=== PATIENT | female | born 1975 | race Caucasian/White ===

== ENCOUNTER 2016-10-19 23:04 | Emergency (ER) | payer OTHER, BC ==
[~2016-10-19] VITALS: Ht 162.6 cm; Wt 81.6 kg
[2016-10-19 23:04] VITALS: BP 132/57
--- NOTE | 2016-10-20 00:48 | PHYS DOC ---
Past Medical History Past Medical History: No Pertinent History, Anxiety Past Surgical History: Cholecystectomy, Hysterectomy Alcohol Use: Rarely Drug Use: None Adult General Chief Complaint Chief Complaint: FINGER INJURY [facility] HPI Patient is a 41 year old female who presents with left hand injury. She states she was at work 28 hours ago and smashed it on a shelf. She complains of her PIP joint hurting her left hand. She is right-handed. She states over the last 24 hours it has swollen and become bruised around her joint. Review of Systems Review of Systems Constitutional: Denies fever or chills [] Eyes: Denies change in visual acuity, redness, or eye pain [] HENT: Denies nasal congestion or sore throat [] Respiratory: Denies cough or shortness of breath [] Cardiovascular: No additional information not addressed in HPI [] GI: Denies abdominal pain, nausea, vomiting, bloody stools or diarrhea [] : Denies dysuria or hematuria [] Musculoskeletal: Denies back pain, positive for joint pain [] Integument: Denies rash or skin lesions [] Neurologic: Denies headache, focal weakness or sensory changes [] Endocrine: Denies polyuria or polydipsia [] Allergies Allergies Allergies Coded Allergies Type Severity Reaction Last Updated Verified promethazine Allergy Intermediate confused 08/30/13 No Physical Exam Physical Exam Constitutional: Well developed, well nourished, no acute distress, non-toxic appearance. [] HENT: Normocephalic, atraumatic, bilateral external ears normal, oropharynx moist, no oral exudates, nose normal. [] Eyes: PERRLA, EOMI, conjunctiva normal, no discharge. [] Neck: Normal range of motion, no tenderness, supple, no stridor. [] Cardiovascular:Heart rate regular rhythm, no murmur [] Lungs & Thorax: Bilateral breath sounds clear to auscultation [] Abdomen: Bowel sounds normal, soft, no tenderness, no masses, no pulsatile masses. [] Skin: Warm, dry, no erythema, no rash. [] Back: No tenderness, no CVA tenderness. [] Extremities: Tender palpation of the left fourth digit PIP joint with erythema around it, able to flex and extend minimally, limited secondary to pain., no cyanosis, no clubbing, ROM intact, no edema. Radial ulnar median nerve dispositions intact to light touch of the left hand Neurologic: Alert and oriented X 3, normal motor function, normal sensory function, no focal deficits noted. [] Psychologic: Affect normal, judgement normal, mood normal. [] Current Patient Data Vital Signs Vital Signs Date Time Temp Pulse Resp B/P (MAP) Pulse Ox O2 Delivery O2 Flow Rate FiO2 10/19/16 23:04 98.5 80 16 99 Room Air 98.5 EKG EKG [] Radiology/Procedures Radiology/Procedures Reviews of the left hand did not show any rashes, malalignment's, foreign bodies , as interpreted by me. Impressions: Left finger injury Course & Med Decision Making Course & Med Decision Making Pertinent Labs and Imaging studies reviewed. (See chart for details) X-rays do not show any fracture. We dalila taped her finger together to the next one and she is being discharged home. She is to follow-up with primary care physician. Return precautions given. She is agreeable to the plan and being discharged in stable condition this time. Dragon Disclaimer Dragon Disclaimer This electronic medical record was generated, in whole or in part, using a voice recognition dictation system. Departure Departure Impression: Primary Impression: Finger injury Disposition: HOME, SELF-CARE Referrals: DAISY NICKERSON MD (PCP) Patient Instructions: Crush Injury, Fingers or Toes, [id number] Additional Instructions: The x-ray did not show anything broken. Your given a dalila tape the 2 fingers together and given several days to heal. You can take Motrin for pain control. After 2 days please and tape. Fingers and start doing range of motion with them inorder to keep limber. You should follow up with her primary care physician within a week if not better. Return ER if you have worsening swelling, fevers, or other signs of infection. Problem Qualifiers Primary Impression: Finger injury Encounter type: initial encounter Laterality: left Qualified Codes: S69.92XA - Unspecified injury of left wrist, hand and finger(s), initial encounter DANNY ROJO MD Oct 20, 2016 00:48
--- NOTE | 2016-10-20 08:08 | RAD ---
Examination: 3 views of the left fourth and fifth digit History: History of injury Comparison: None available Findings: The alignment of the metacarpophalangeal joint, interphalangeal joint grossly appears unremarkable. There is no acute fracture or dislocation identified Impression: No acute osseous findings.
== END 2016-10-20 01:09 | disposition home or self-care (01) ==
LOC: ER 23:23
DX: S69.92XA Unspecified injury of left wrist, hand and finger(s), initial encounter (principal); Z88.8 Allergy status to other drugs, medicaments and biological substances; W23.0XXA Caught, crushed, jammed, or pinched between moving objects, initial encounter; Y93.89 Activity, other specified; Y99.8 Other external cause status; Y92.89 Other specified places as the place of occurrence of the external cause
CPT/HCPCS: 73140; 99284

== ENCOUNTER 2016-12-04 15:45 | Emergency (ER) | payer BC, OTHER ==
[~2016-12-04] VITALS: Ht 167.6 cm; Wt 81.6 kg
[2016-12-04] MEDS ORDERED: IV NORMAL SALINE 1000ML BAG 1,000 ML IV SCH (16:31)
--- NOTE | 2016-12-04 16:40 | PHYS DOC ---
Past Medical History Past Medical History: No Pertinent History Past Surgical History: Cholecystectomy, Hysterectomy Alcohol Use: None Drug Use: None Adult General Chief Complaint Chief Complaint: ABDOMINAL PAIN [facility] HPI She is a pleasant 41-year-old female who is had a history of prior cholecystectomy, partial hysterectomy and partial oophorectomy who presents with right lower quadrant abdominal pain that began earlier in the week. Patient 's pain is gotten progressively worse over the course of the last few days. She was seen by her primary care doctor provide her something for diarrhea. She admits that the pain began in the right flank right lower quadrant did get worse or if he days and then markedly improved. While at work she began having increasing pain in the right lower quadrant described as sharp and stabbing without radiation to the back or the abdomen. She denies any prior history of the same. She admits she's had a couple episodes of loose stool which she took an antidiarrheal medications and one episode of nonbilious nonbloody emesis today. Patient denies any fevers or chills at this time denies any UTI symptoms , vaginal bleeding discharge or trauma. Patient also admits she's had no change in appetite but she has admitted that her pain is worsened with food as any travel outside the country or recent antibiotics. She also does not handle any kind of poultry, reptiles or consume any raw food. Patient was seen by her primary care doctor as to be evaluated in the emergency Department secondary to the right lower quadrant pain. My abdominal pain differential includes but not limited to, UTI, pyonephritis, cholecystitis, cholelithiasis, pancreatitis, appendicitis, small bowel obstruction, large bowel obstruction, diverticulosis, Diverticulum, intussusception, volvulus, irritable bowel disease, Crohn's or ulcerative colitis, considered upon arrival Review of Systems Review of Systems Constitutional: Denies fever or chills [] Eyes: Denies change in visual acuity, redness, or eye pain [] HENT: Denies nasal congestion or sore throat [] Respiratory: Denies cough or shortness of breath [] Cardiovascular: No additional information not addressed in HPI [] GI: She has mild abdominal pain with nausea and vomiting times one episode today nonbloody some mucoid stools or loose diarrheal stools several days ago now resolved. : Denies dysuria or hematuria [] Musculoskeletal: Denies back pain or joint pain [] Integument: Denies rash or skin lesions [] Neurologic: Denies headache, focal weakness or sensory changes [] Endocrine: Denies polyuria or polydipsia [] Current Medications Current Medications Current Medications Medications (Trade) Dose Ordered Sig/Rodrigue Start Time Stop Time Status Last Admin Dose Admin Hydromorphone HCl (Dilaudid) 1 mg PRN Q15MIN PRN 12/04/16 16:45 12/05/16 16:44 12/04/16 17:25 1 MG Info (Do NOT chart on this entry -- for MONITORING) 1 each PRN DAILY PRN 12/04/16 17:00 12/06/16 16:59 Iohexol (Omnipaque 300 Mg/ml) 75 ml 1X ONCE 12/04/16 16:45 12/04/16 16:47 DC 12/04/16 17:11 75 ML Ondansetron HCl (Zofran) 4 mg 1X ONCE 12/04/16 16:45 12/04/16 16:46 DC 12/04/16 16:47 4 MG Sodium Chloride (Normal Saline Flush) 10 ml QSHIFT PRN 12/04/16 16:45 Allergies Allergies Allergies Coded Allergies Type Severity Reaction Last Updated Verified promethazine Allergy Intermediate confused 08/30/13 No Physical Exam Physical Exam Vital signs recorded on the chart within normal limits. Constitutional: Well developed, well nourished, no acute distress, non-toxic appearance. [] HENT: Normocephalic, atraumatic, bilateral external ears normal, oropharynx moist, no oral exudates, nose normal. [] Eyes: PERRLA, EOMI, conjunctiva normal, no discharge. [] Neck: Normal range of motion, no tenderness, supple, no stridor. [] Cardiovascular:Heart rate regular rhythm, no murmur [] Lungs & Thorax: Bilateral breath sounds clear to auscultation [] Abdomen: She has normoactive bowel sounds soft tenderness to palpation in the right lower quadrant with no Calvert's or McBurney's point tenderness to palpation. Patient has no guarding rebound organomegaly negative Mckeon Combs sign negative Rovsing sign Skin: Warm, dry, no erythema, no rash. [] Back: No tenderness, no CVA tenderness. [] Extremities: No tenderness, no cyanosis, no clubbing, ROM intact, no edema. [] Neurologic: Alert and oriented X 3, Psychologic: Affect normal, judgement normal, mood normal. [] Current Patient Data Vital Signs Vital Signs Date Time Temp Pulse Resp B/P (MAP) Pulse Ox O2 Delivery O2 Flow Rate FiO2 12/04/16 17:25 18 97 Room Air 12/04/16 15:57 98.1 76 128/72 (90) 98.1 Lab Values Laboratory Tests Test 12/04/16 16:15 12/04/16 16:31 12/04/16 16:35 Urine Collection Type Unknown Urine Color Dk yellow Urine Clarity Clear Urine pH 6.0 Urine Specific [place] 1.025 Urine Protein Negative mg/dL (NEG-TRACE) Urine Glucose (UA) Negative mg/dL (NEG) Urine Ketones (Stick) Negative mg/dL (NEG) Urine Blood Negative (NEG) Urine Nitrite Negative (NEG) Urine Bilirubin Small (NEG) Urine Urobilinogen Dipstick 0.2 mg/dL (0.2 mg/dL) Urine Leukocyte Esterase Negative (NEG) Urine RBC 0 /HPF (0-2) Urine WBC Occ /HPF (0-4) Urine Squamous Epithelial Cells Mod /LPF Urine Bacteria Few /HPF (0-FEW) Urine Mucus Marked /LPF Sodium Level 139 mmol/L (136-145) Potassium Level 4.5 mmol/L (3.5-5.1) Chloride Level 102 mmol/L (98-107) Carbon Dioxide Level 31 mmol/L (21-32) Anion Gap 6 (6-14) Blood Urea Nitrogen 11 mg/dL (7-20) Creatinine 0.7 mg/dL (0.6-1.0) Estimated GFR (Cockcroft-Gault) 91.8 BUN/Creatinine Ratio 16 (6-20) Glucose Level 95 mg/dL (70-99) Calcium Level 9.1 mg/dL (8.5-10.1) Total Bilirubin 0.3 mg/dL (0.2-1.0) Aspartate Amino Transferase (AST) 21 U/L (15-37) Alanine Aminotransferase (ALT) 32 U/L (14-59) Alkaline Phosphatase 86 U/L (46-116) Total Protein 7.3 g/dL (6.4-8.2) Albumin 3.8 g/dL (3.4-5.0) Albumin/Globulin Ratio 1.1 (1.0-1.7) Lipase 129 U/L (73-393) White Blood Count 6.6 x10^3/uL (4.0-11.0) Red Blood Count 4.20 x10^6/uL (3.50-5.40) Hemoglobin 13.1 g/dL (12.0-15.5) Hematocrit 38.3 % (36.0-47.0) Mean Corpuscular Volume 91 fL (79-100) Mean Corpuscular Hemoglobin 31 pg (25-35) Mean Corpuscular Hemoglobin Concent 34 g/dL (31-37) Red Cell Distribution Width 12.5 % (11.5-14.5) Platelet Count 230 x10^3/uL (140-400) Neutrophils (%) (Auto) 74 % (31-73) H Lymphocytes (%) (Auto) 17 % (24-48) L Monocytes (%) (Auto) 6 % (0-9) Eosinophils (%) (Auto) 2 % (0-3) Basophils (%) (Auto) 1 % (0-3) Neutrophils # (Auto) 4.8 x10^3uL (1.8-7.7) Lymphocytes # (Auto) 1.1 x10^3/uL (1.0-4.8) Monocytes # (Auto) 0.4 x10^3/uL (0.0-1.1) Eosinophils # (Auto) 0.2 x10^3/uL (0.0-0.7) Basophils # (Auto) 0.0 x10^3/uL (0.0-0.2) Laboratory Tests 12/04/16 16:35 Laboratory Tests 12/04/16 16:31 EKG EKG [] Radiology/Procedures Radiology/Procedures [] Course & Med Decision Making Course & Med Decision Making Pertinent Labs and Imaging studies reviewed. (See chart for details) Patient presents with right lower quadrant abdominal pain concerning the differential diagnosis urinalysis was collected, CBC, lipase, CMP, CT abdomen and pelvis was obtained. Patient will have IV fluids antiemetics and pain meds provided and We'll reassess Laboratory Tests Test 12/04/16 16:15 12/04/16 16:31 12/04/16 16:35 Urine Collection Type Unknown Urine Color Dk yellow Urine Clarity Clear Urine pH 6.0 Urine Specific [place] 1.025 Urine Protein Negative mg/dL (NEG-TRACE) Urine Glucose (UA) Negative mg/dL (NEG) Urine Ketones (Stick) Negative mg/dL (NEG) Urine Blood Negative (NEG) Urine Nitrite Negative (NEG) Urine Bilirubin Small (NEG) Urine Urobilinogen Dipstick 0.2 mg/dL (0.2 mg/dL) Urine Leukocyte Esterase Negative (NEG) Urine RBC 0 /HPF (0-2) Urine WBC Occ /HPF (0-4) Urine Squamous Epithelial Cells Mod /LPF Urine Bacteria Few /HPF (0-FEW) Urine Mucus Marked /LPF Sodium Level 139 mmol/L (136-145) Chloride Level 102 mmol/L (98-107) Carbon Dioxide Level 31 mmol/L (21-32) Anion Gap 6 (6-14) Blood Urea Nitrogen 11 mg/dL (7-20) Estimated GFR (Cockcroft-Gault) 91.8 BUN/Creatinine Ratio 16 (6-20) Glucose Level 95 mg/dL (70-99) Calcium Level 9.1 mg/dL (8.5-10.1) Total Bilirubin 0.3 mg/dL (0.2-1.0) Aspartate Amino Transf (AST/SGOT) 21 U/L (15-37) Alkaline Phosphatase 86 U/L (46-116) Total Protein 7.3 g/dL (6.4-8.2) Albumin 3.8 g/dL (3.4-5.0) Albumin/Globulin Ratio 1.1 (1.0-1.7) Lipase 129 U/L (73-393) White Blood Count 6.6 x10^3/uL (4.0-11.0) Red Blood Count 4.20 x10^6/uL (3.50-5.40) Hemoglobin 13.1 g/dL (12.0-15.5) Hematocrit 38.3 % (36.0-47.0) Mean Corpuscular Volume 91 fL (79-100) Mean Corpuscular Hemoglobin 31 pg (25-35) Mean Corpuscular Hemoglobin Concent 34 g/dL (31-37) Red Cell Distribution Width 12.5 % (11.5-14.5) Platelet Count 230 x10^3/uL (140-400) Neutrophils (%) (Auto) 74 % (31-73) Lymphocytes (%) (Auto) 17 % (24-48) Monocytes (%) (Auto) 6 % (0-9) Eosinophils (%) (Auto) 2 % (0-3) Basophils (%) (Auto) 1 % (0-3) Neutrophils # (Auto) 4.8 x10^3uL (1.8-7.7) Lymphocytes # (Auto) 1.1 x10^3/uL (1.0-4.8) Monocytes # (Auto) 0.4 x10^3/uL (0.0-1.1) Eosinophils # (Auto) 0.2 x10^3/uL (0.0-0.7) Basophils # (Auto) 0.0 x10^3/uL (0.0-0.2) []Patient tells me that their symptoms given during CC are improved. We reviewed labs and radiology reports with patient and any family at bedside. Time is now 5:49 PM feels markedly improved Impression: Abdominal pain unclear etiology, Dragon Disclaimer Dragon Disclaimer This electronic medical record was generated, in whole or in part, using a voice recognition dictation system. Departure Departure Impression: Primary Impression: Abdominal pain Disposition: 01 HOME, SELF-CARE Condition: IMPROVED Referrals: DAISY NICKERSON MD (PCP) Patient Instructions: Abdominal Pain (Nonspecific) Additional Instructions: My discharge plan Follow up: In addition patient is asked to followup with their primary doctor, within a week for followup examination and to address patient's ongoing medical conditions. . Patient is advised that in the Emergency Department primary complaints are addressed and only in light of known signs and symptoms. Patient should return immediately to the emergency department if new signs and symptoms develop or patient's condition worsens in any way. At time of discharge patient was in stable condition and had verbalized understanding of the discharge instructions. Although there is no obvious evidence of appendicitis or intra-abdominal catastrophe at this time requiring surgical intervention or immediate medical management you could still develop these issues in the future. I would ask that you return immediately for any increasing symptoms question concerns. Scripts Hydrocodone Bit/Acetaminophen (HYDROCODONE-APAP 5-325 ) 1 Each Tablet 1-2 TAB PO PRN Q6HRS Y for PAIN for 5 Days, #10 TAB 0 Refills Prov: SISSY BARKER MD 12/04/16 Ondansetron (ZOFRAN ODT) 4 Mg Tab.rapdis 4 MG PO BID Y for NAUSEA/VOMITING for 5 Days, #10 TAB Prov: SISSY BARKER MD 12/04/16 SISSY BARKER MD Dec 04, 2016 16:40
[2016-12-04] MEDS ORDERED: ONDANSETRON PF 4 MG/2 ML VIAL. IV ONE (16:45)
[2016-12-04] MEDS ORDERED: 0.9 % SODIUM CHLORIDE 10 ML DISP.SYRIN. IV PRN (16:45)
[2016-12-04] MEDS ORDERED: IOHEXOL 300 MG/ML 75 ML VIAL IV ONE (16:45)
[2016-12-04] MEDS: HYDROmorphone 2 MG/ML VIAL IV/SQ PRN ×2 (16:48→17:25)
[2016-12-04 16:49] LABS: BASO % 1 % (0-3); EOS % 2 % (0-3); HEMATOCRIT 38.3 % (36.0-47.0); HEMOGLOBIN 13.1 g/dL (12.0-15.5); LYMPH # 1.1 x10^3/uL (1.0-4.8); LYMPH % 17 % (24-48); MEAN CORPUSCULAR HEMOGLOBIN 31 pg (25-35); MEAN CORPUSCULAR HGB CONC 34 g/dL (31-37); MEAN CORPUSCULAR VOLUME 91 fL (79-100); MONO % 6 % (0-9); NEUT % 74 % (31-73); PLATELET COUNT 230 x10^3/uL (140-400); RED CELL DISTRIBUTION WIDTH 12.5 % (11.5-14.5); WHITE BLOOD COUNT 6.6 x10^3/uL (4.0-11.0)
[2016-12-04] MEDS ORDERED: CONTRAST GIVEN MC PRN (17:00)
[2016-12-04 17:02] LABS: CALCIUM 9.1 mg/dL (8.5-10.1); CREATININE 0.7 mg/dL (0.6-1.0); GFR 91.8; POTASSIUM 4.5 mmol/L (3.5-5.1)
[2016-12-04 17:06] LABS: BILIRUBIN,URINE SMALL (NEG); GLUCOSE,URINE NEGATIVE (NEG); NITRITE,URINE NEGATIVE (NEG); PROTEIN,URINE NEGATIVE (NEG-TRACE); UROBILINOGEN,URINE 0.2 mg/dL (0.2 mg/dL)
[2016-12-04 17:08] LABS: ALBUMIN 3.8 g/dL (3.4-5.0); ALBUMIN/GLOBULIN RATIO 1.1 (1.0-1.7); TOTAL BILIRUBIN 0.3 mg/dL (0.2-1.0); TOTAL PROTEIN 7.3 g/dL (6.4-8.2)
[2016-12-04 17:23] LABS: BACTERIA,URINE FEW /HPF (0-FEW); RBC,URINE 0 /HPF (0-2); SQUAMOUS EPITHELIAL CELL,UR MOD /LPF; WBC,URINE OCC /HPF (0-4)
--- NOTE | 2016-12-04 17:31 | RAD ---
CT Abdomen and Pelvis With Intravenous Contrast: History: Right lower quadrant pain and abdominal pain for one week. Comparison: CT abdomen pelvis August 30, 2013. Technique: After administration of intravenous contrast administration, 75 mL Omnipaque-300, CT of the abdomen and pelvis was performed. Exposure: One or more of the following individualized dose reduction techniques were utilized for this examination: 1. Automated exposure control 2. Adjustment of the mA and/or kV according to patient size 3. Use of iterative reconstruction technique Findings: Evaluation of enteric structures may be limited by lack of oral contrast. Liver, spleen, pancreas, and bilateral adrenal glands are unremarkable. Gallbladder is absent. Bilateral kidneys enhance symmetrically. No bowel obstruction or inflammation is seen. Appendix is without evidence of inflammation. Urinary bladder is unremarkable. Uterus is absent. No free air or free fluid is seen in the abdomen or pelvis. Small fat-containing umbilical hernia is seen. Small fat-containing epigastric ventral hernia is seen just superior to the umbilicus. Impression: 1. No acute abnormality identified in the abdomen or pelvis. 2. Fat-containing ventral hernias. Electronically signed by: Alo Garza MD (12/04/2016 5:28 PM) [facility]
[2016-12-04] MEDS ORDERED: HYDR-2758 PO (17:51)
[2016-12-04] MEDS ORDERED: ONDA4TAB10 PO (17:51)
[2016-12-04 18:10] VITALS: BP 104/51
== END 2016-12-04 18:18 | disposition home or self-care (01) ==
LOC: ER 15:45
DX: R10.31 Right lower quadrant pain (principal); R19.7 Diarrhea, unspecified; R11.2 Nausea with vomiting, unspecified; Z90.49 Acquired absence of other specified parts of digestive tract; Z90.710 Acquired absence of both cervix and uterus; Z88.8 Allergy status to other drugs, medicaments and biological substances
CPT/HCPCS: 36415; 74177; 80053; 81001; 83690; 85025; 96361; 96374; 96375; 96376; 99285; J1170; J2405; J7030; Q9967

== ENCOUNTER 2017-04-01 23:18 | Inpatient (IN) | payer BC ==
[2017-04-01] MEDS: IV NORMAL SALINE 1000ML BAG 1,000 ML IV (23:33)
[2017-04-02 00:41] LABS: ADD MAN DIFF? NO
[2017-04-02 00:44] LABS: BASO # 0.1 x10^3/uL (0.0-0.2); BASO % 1 % (0-3); EOS # 0.2 x10^3/uL (0.0-0.7); EOS % 3 % (0-3); HEMATOCRIT 39.4 % (36.0-47.0); HEMOGLOBIN 13.2 g/dL (12.0-15.5); LYMPH # 1.7 x10^3/uL (1.0-4.8); LYMPH % 30 % (24-48); MEAN CORPUSCULAR HEMOGLOBIN 32 pg (25-35); MEAN CORPUSCULAR HGB CONC 34 g/dL (31-37); MEAN CORPUSCULAR VOLUME 94 fL (79-100); MONO # 0.5 x10^3/uL (0.0-1.1); MONO % 8 % (0-9); NEUT # 3.4 x10^3uL (1.8-7.7); NEUT % 58 % (31-73); PLATELET COUNT 261 x10^3/uL (140-400); RED BLOOD COUNT 4.19 x10^6/uL (3.50-5.40); RED CELL DISTRIBUTION WIDTH 12.9 % (11.5-14.5); WHITE BLOOD COUNT 5.8 x10^3/uL (4.0-11.0)
[2017-04-02 00:53] LABS: BILIRUBIN,URINE NEGATIVE (NEG); CLARITY,URINE CLEAR; COLOR,URINE STRAW; GLUCOSE,URINE NEGATIVE (NEG)
[2017-04-02 00:54] LABS: NITRITE,URINE NEGATIVE (NEG); PROTEIN,URINE NEGATIVE (NEG-TRACE); UROBILINOGEN,URINE 0.2 mg/dL (0.2 mg/dL)
[2017-04-02 00:55] LABS: AMORPHOUS SEDIMENT,UR PRESENT /HPF; BACTERIA,URINE 0 /HPF (0-FEW); PARTIAL THROMBOPLASTIN TIME 31 SEC (24-38); PROTHROMBIN TIME PATIENT 12.7 SEC (11.7-14.0); RBC,URINE OCC /HPF (0-2); SQUAMOUS EPITHELIAL CELL,UR FEW /LPF; WBC,URINE OCC /HPF (0-4)
[2017-04-02 00:56] LABS: AMPHETAMINE/METHAMPHETAMINE NEG (NEG); BARBITURATES NEG (NEG); BENZODIAZEPINES POS (NEG); CANNABINOIDS NEG (NEG); COCAINE NEG (NEG); ETHANOL, URINE NEG (NEG); METHADONE NEG (NEG); OPIATES NEG (NEG); PHENCYCLIDINE NEG (NEG)
[2017-04-02 01:01] LABS: ANION GAP 6 (6-14); BLOOD UREA NITROGEN 10 mg/dL (7-20); BUN/CREATININE RATIO 17 (6-20); CALCIUM 9.4 mg/dL (8.5-10.1); CARBON DIOXIDE 29 mmol/L (21-32); CHLORIDE 103 mmol/L (98-107); CREATININE 0.6 mg/dL (0.6-1.0); GFR 109.1; GLUCOSE 89 mg/dL (70-99); POTASSIUM 3.9 mmol/L (3.5-5.1); SODIUM 138 mmol/L (136-145)
[2017-04-02 01:07] LABS: ALBUMIN 3.5 g/dL (3.4-5.0); ALBUMIN/GLOBULIN RATIO 0.9 (1.0-1.7); ALK PHOS 81 U/L (46-116); ALT (SGPT) 23 U/L (14-59); AST (SGOT) 17 U/L (15-37); CREATINE KINASE 76 U/L (26-192); MAGNESIUM 2.3 mg/dL (1.8-2.4); TOTAL BILIRUBIN 0.2 mg/dL (0.2-1.0); TOTAL PROTEIN 7.3 g/dL (6.4-8.2)
[2017-04-02 01:14] LABS: ACETAMIN < 2.0 mcg/ml (10-30); ETHANOL < 10 mg/dL (0-10); SALIC < 2.8 mg/dL (2.8-20.0)
[2017-04-02] MEDS ORDERED: ONDANSETRON PF 4 MG/2 ML VIAL. IV (04:15)
[2017-04-02] MEDS ORDERED: INFLUENZA VAX SCREEN BY RX. MC (06:00)
[2017-04-02] MEDS: FLU VACC QS2017-18 (36MOS+)/PF 0.5 ML SYRINGE. VAX IM (08:00)
[2017-04-02] MEDS: ACETAMINOPHEN 325 MG TABLET. PO (10:17)
[2017-04-02] MEDS: IV NORMAL SALINE 1000ML BAG 1,000 ML IV (11:03)
[2017-04-02] MEDS: HYDROcodone/APAP 5/325MG 1 TAB TABLET PO ×2 (15:23→20:35)
[2017-04-03] MEDS: IV NORMAL SALINE 1000ML BAG 1,000 ML IV (00:05)
[2017-04-03 05:26] LABS: ADD MAN DIFF? NO
[2017-04-03 05:44] LABS: HEMATOCRIT 38.8 % (36.0-47.0); HEMOGLOBIN 12.9 g/dL (12.0-15.5); MEAN CORPUSCULAR VOLUME 95 fL (79-100); RED BLOOD COUNT 4.08 x10^6/uL (3.50-5.40); WHITE BLOOD COUNT 4.6 x10^3/uL (4.0-11.0)
[2017-04-03 05:45] LABS: BASO % 1 % (0-3); EOS # 0.3 x10^3/uL (0.0-0.7); EOS % 6 % (0-3); LYMPH # 1.8 x10^3/uL (1.0-4.8); LYMPH % 38 % (24-48); MEAN CORPUSCULAR HEMOGLOBIN 32 pg (25-35); MEAN CORPUSCULAR HGB CONC 33 g/dL (31-37); MONO # 0.4 x10^3/uL (0.0-1.1); MONO % 9 % (0-9); NEUT # 2.2 x10^3uL (1.8-7.7); NEUT % 47 % (31-73); PLATELET COUNT 228 x10^3/uL (140-400); RED CELL DISTRIBUTION WIDTH 13.1 % (11.5-14.5)
[2017-04-03 06:20] LABS: ANION GAP 6 (6-14); BLOOD UREA NITROGEN 9 mg/dL (7-20); CALCIUM 8.3 mg/dL (8.5-10.1); CARBON DIOXIDE 29 mmol/L (21-32); CHLORIDE 103 mmol/L (98-107); CREATININE 0.7 mg/dL (0.6-1.0); GFR 91.3; GLUCOSE 95 mg/dL (70-99); POTASSIUM 4.2 mmol/L (3.5-5.1); SODIUM 138 mmol/L (136-145)
== END 2017-04-03 15:30 | disposition home or self-care (01) | DRG 917 ==
LOC: 6 SOUTH 04-02 04:11 → ER 23:18
DX: T42.4X1A Poisoning by benzodiazepines, accidental (unintentional), initial encounter (principal); G93.40 Encephalopathy, unspecified; F13.20 Sedative, hypnotic or anxiolytic dependence, uncomplicated; F31.9 Bipolar disorder, unspecified; Y92.89 Other specified places as the place of occurrence of the external cause; Z81.8 Family history of other mental and behavioral disorders; Z90.710 Acquired absence of both cervix and uterus; Z88.8 Allergy status to other drugs, medicaments and biological substances
CPT/HCPCS: 36415; 51701; 70450; 80048; 80053; 80307; 80329; 81001; 82550; 83735; 85025; 85610; 85730; 90471; 90686; 93005; 96360; 96361; 99285; 99285-25; G0480; J7030

== ENCOUNTER 2017-04-07 00:29 | Emergency (ER) | payer BC ==
[2017-04-07] MEDS: HYDROcodone/APAP 5/325MG 1 TAB TABLET PO ×2 (01:54)
== END 2017-04-07 02:01 | disposition home or self-care (01) ==
LOC: ER 00:29
DX: S60.221A Contusion of right hand, initial encounter (principal); F31.9 Bipolar disorder, unspecified; F13.10 Sedative, hypnotic or anxiolytic abuse, uncomplicated; Z90.49 Acquired absence of other specified parts of digestive tract; Z90.710 Acquired absence of both cervix and uterus; Z88.8 Allergy status to other drugs, medicaments and biological substances; W22.8XXA Striking against or struck by other objects, initial encounter; Y93.89 Activity, other specified; Y92.89 Other specified places as the place of occurrence of the external cause; Y99.8 Other external cause status
CPT/HCPCS: 73130; 99284

== ENCOUNTER 2017-04-08 11:15 | Emergency (ER) | payer BC ==
[2017-04-08 12:05] LABS: BARBITURATES NEG (NEG); BENZODIAZEPINES NEG (NEG); BILIRUBIN,URINE NEGATIVE (NEG); CANNABINOIDS NEG (NEG); CLARITY,URINE CLEAR; COCAINE NEG (NEG); COLOR,URINE YELLOW; GLUCOSE,URINE NEGATIVE (NEG); METHADONE NEG (NEG); NITRITE,URINE NEGATIVE (NEG); OPIATES NEG (NEG); PHENCYCLIDINE NEG (NEG); PROTEIN,URINE NEGATIVE (NEG-TRACE); UROBILINOGEN,URINE 0.2 mg/dL (0.2 mg/dL)
[2017-04-08 12:06] LABS: AMPHETAMINE/METHAMPHETAMINE NEG (NEG); ETHANOL, URINE NEG (NEG)
[2017-04-08 12:13] LABS: ADD MAN DIFF? NO
[2017-04-08 12:19] LABS: BASO # 0.1 x10^3/uL (0.0-0.2); BASO % 1 % (0-3); EOS % 1 % (0-3); HEMATOCRIT 39.3 % (36.0-47.0); HEMOGLOBIN 13.4 g/dL (12.0-15.5); LYMPH # 1.1 x10^3/uL (1.0-4.8); LYMPH % 16 % (24-48); MEAN CORPUSCULAR HEMOGLOBIN 32 pg (25-35); MEAN CORPUSCULAR HGB CONC 34 g/dL (31-37); MEAN CORPUSCULAR VOLUME 93 fL (79-100); MONO # 0.5 x10^3/uL (0.0-1.1); MONO % 8 % (0-9); NEUT # 4.9 x10^3uL (1.8-7.7); NEUT % 74 % (31-73); PLATELET COUNT 277 x10^3/uL (140-400); RED BLOOD COUNT 4.23 x10^6/uL (3.50-5.40); RED CELL DISTRIBUTION WIDTH 12.7 % (11.5-14.5); WHITE BLOOD COUNT 6.6 x10^3/uL (4.0-11.0)
[2017-04-08 12:22] LABS: BACTERIA,URINE FEW /HPF (0-FEW); RBC,URINE 0 /HPF (0-2); SQUAMOUS EPITHELIAL CELL,UR MANY /LPF; WBC,URINE 0 /HPF (0-4)
[2017-04-08 12:31] LABS: ANION GAP 10 (6-14); BLOOD UREA NITROGEN 12 mg/dL (7-20); CARBON DIOXIDE 26 mmol/L (21-32); CHLORIDE 100 mmol/L (98-107); CREATININE 0.6 mg/dL (0.6-1.0); GFR 109.1; GLUCOSE 117 mg/dL (70-99); POTASSIUM 3.7 mmol/L (3.5-5.1); SODIUM 136 mmol/L (136-145)
[2017-04-08 12:46] LABS: THYROID STIM HORMONE (TSH) 2.131 uIU/mL (0.358-3.74)
[2017-04-08] MEDS: SODIUM PHOSPHATES 19/7GM 133 ML ENEMA. PR ×2 (13:27)
[2017-04-08 14:45] LABS: LIPASE 85 U/L (73-393)
[2017-04-08 16:36] LABS: FECAL OB PT POSITIVE (NEG); NEG OBC FOB NEG; POS OBC FOB POS
== END 2017-04-08 15:06 | disposition home or self-care (01) ==
LOC: ER 11:15
DX: K59.00 Constipation, unspecified (principal); R20.2 Paresthesia of skin; R19.8 Other specified symptoms and signs involving the digestive system and abdomen; Z88.8 Allergy status to other drugs, medicaments and biological substances
CPT/HCPCS: 36415; 74018; 80048; 80307; 81001; 82274; 83690; 84443; 85025; 99285-25

== ENCOUNTER → 2018-04-30 | Outpatient (CLI) | payer BC ==
[2017-04-08 15:05] VITALS: BP 111/58
[~2018-04-30] MED LIST: ACYC400T PO; ALPR0.5T6 PO; CITA40TA5 PO; DICL75TA PO; DOCU-109 PO; ESCITALOPRAM OX20 MG PO; GABA600T7 PO; HYDR-2761 PO; LAMO100T PO; METH-37 PO; METH750T2 PO; ONDA4TAB10 PO; [UNRECOGNIZED DRUG - REMARK]
--- NOTE | 2018-05-01 08:08 | KCIC ---
EXAM: Cervical spine MRI without contrast. HISTORY: Radiculopathy. TECHNIQUE: Multiplanar, multisequence magnetic resonance imaging of the cervical spine was performed without contrast. COMPARISON: None. FINDINGS: There is mild cervical kyphosis. There is no significant listhesis. The vertebral bodies are normal in height. There are few incidental osseous hemangiomas. There is no suspicious osseous lesion. There is no acute or subacute fracture. There is degenerative endplate remodeling with osteophytosis at the majority of the cervical vertebral levels. There are few endplate Schmorl's nodes, predominantly at C6-C7. There is deformation of the cervical spinal cord at multiple levels due to central canal stenosis, described in detail below. At C2-C3, there is a minimal left posterior lateral disc osteophyte complex. There is mild right greater than left facet arthropathy. There is mild left foraminal stenosis. At C3-C4, there is a minimal shallow left paracentral disc protrusion superimposed on a disc bulge and endplate remodeling. There is mild left greater than right facet arthropathy. There is moderate left foraminal stenosis. There is slight flattening of the left ventral aspect of the spinal cord and mild central canal stenosis measuring 8.5 mm in anterior posterior dimension. At C4-C5, there are bilateral posterior lateral disc osteophyte complexes superimposed on a diffuse disc bulge and endplate osteophytosis. There is mild bilateral facet arthropathy. There is bilateral uncovertebral arthropathy. There is moderate to severe right and severe left foraminal stenosis. There is flattening of the ventral aspect of the spinal cord and moderate central canal stenosis measuring 6.3 mm in anterior posterior dimension. There is suggestion of slight T2 hyperintensity within the spinal cord at this level which is not seen on both sagittal and axial images and is likely artifactual rather than due to myelomalacia. At C5-C6, there is a right paracentral to lateral recess disc protrusion with slight inferior extrusion and bilateral posterior lateral disc osteophyte complexes superimposed on a disc bulge and endplate osteophytosis. There is mild bilateral facet arthropathy. There is bilateral uncovertebral arthropathy. There is severe right and moderate to severe left foraminal stenosis. There is flattening of the right ventral aspect of the spinal cord and moderate central canal stenosis measuring 7.0 mm in anterior posterior dimension. There is a tiny dilated nerve root sheath cyst within the right extraforaminal space. At C6-C7, there is a right posterior lateral predominant disc bulge and endplate osteophytosis. There is mild facet arthropathy. There is right greater than left uncovertebral arthropathy. There is mild left foraminal stenosis. IMPRESSION: Multilevel degenerative change throughout the cervical spine, described in detail above. This results in suspected mild left foraminal stenosis at C2-C3, moderate left foraminal and mild central canal stenosis at C3-C4, moderate to severe right and severe left foraminal and moderate central canal stenosis at C4-C5, severe right and moderate to severe left foraminal and moderate central canal stenosis at C5-C6, and mild left foraminal stenosis at C6-C7. Electronically signed by: Joan Frias MD (05/01/2018 8:05 AM) [id number]
== END | disposition home or self-care (01) ==
LOC: KCIC MRI 16:10
PROVIDERS: ATTEND Psychiatry & Neurology Neurology with Special Qualifications in Child Neurology
DX: M50.11 Cervical disc disorder with radiculopathy, high cervical region (principal); M47.22 Other spondylosis with radiculopathy, cervical region; M48.02 Spinal stenosis, cervical region
CPT/HCPCS: 72141

== ENCOUNTER → 2018-06-02 | Outpatient (CLI) | payer BC ==
[2017-04-08 15:05] VITALS: BP 111/58
[2018-06-02 11:03] LABS: BASO % 1 % (0-3); EOS % 20 % (0-3); HEMATOCRIT 38.2 % (36.0-47.0); HEMOGLOBIN 12.7 g/dL (12.0-15.5); LYMPH # 1.6 x10^3/uL (1.0-4.8); LYMPH % 32 % (24-48); MEAN CORPUSCULAR HEMOGLOBIN 31 pg (25-35); MEAN CORPUSCULAR HGB CONC 33 g/dL (31-37); MEAN CORPUSCULAR VOLUME 94 fL (79-100); MONO # 0.3 x10^3/uL (0.0-1.1); MONO % 7 % (0-9); NEUT # 2.1 x10^3uL (1.8-7.7); NEUT % 41 % (31-73); PLATELET COUNT 266 x10^3/uL (140-400); RED BLOOD COUNT 4.05 x10^6/uL (3.50-5.40); RED CELL DISTRIBUTION WIDTH 13.5 % (11.5-14.5); WHITE BLOOD COUNT 5.1 x10^3/uL (4.0-11.0)
[2018-06-02 11:17] LABS: ALBUMIN 3.6 g/dL (3.4-5.0); CALCIUM 8.7 mg/dL (8.5-10.1); GFR 60.2; POTASSIUM 3.5 mmol/L (3.5-5.1); TOTAL BILIRUBIN 0.3 mg/dL (0.2-1.0); TOTAL PROTEIN 7.3 g/dL (6.4-8.2)
== END | disposition home or self-care (01) ==
LOC: SURGPAT 10:25
PROVIDERS: ATTEND Neurological Surgery
DX: Z01.818 Encounter for other preprocedural examination (principal); M48.02 Spinal stenosis, cervical region; M47.12 Other spondylosis with myelopathy, cervical region
CPT/HCPCS: 36415; 80053; 85025; 87641

== ENCOUNTER 2018-06-06 07:09 | Observation (INO) | payer BC ==
--- NOTE | 2018-06-05 10:21 | PREOP HP ---
DATE OF SERVICE: 06/06/2018. DATE OF SURGERY: 06/06/2018. HISTORY OF PRESENT ILLNESS: The patient is a pleasant 43-year-old who is having difficulty with bilateral neck and shoulder pain as well as bilateral arm numbness and pain. She notes numbness in both of her hands as well. She can have some unsteadiness. She says about 5 months ago, she noted intermittent problems with neck and shoulder and arm pain, but this became much more constant 2 months ago. She rates her pain as an 8/10. Turning her head or getting into bed increases her pain. She is having difficulty with relief and says ice and heat are not beneficial. She has been taking gabapentin as well as diclofenac and Robaxin, which she says have not been helpful. She was scheduled for epidural steroid injections and saw a neurologist who evaluated her. She related that epidural steroid injections may not be of any benefit and felt that she should come and see me for consultation regarding surgery. PAST MEDICAL HISTORY: Headaches and migraines. PAST SURGICAL HISTORY: Hysterectomy and cholecystectomy. FAMILY HISTORY: Alzheimer's, diabetes, heart problems and disease, hypertension, migraine headaches. SOCIAL HISTORY: Employed as an insurance legal assistant. . Rarely exercises. Denies substance abuse. Drinks alcohol 1-2 times per month. Drinks coffee, tea and soda. ALLERGIES: No known drug allergies. CURRENT MEDICATIONS: Gabapentin, diclofenac, methocarbamol, escitalopram oxalate. Acyclovir, mirtazapine, ibuprofen. REVIEW OF SYSTEMS: A 12-point review of systems was obtained and is noncontributory except for that mentioned above. PHYSICAL EXAMINATION: NEUROSURGERY EXAMINATION: GENERAL APPEARANCE: Alert, pleasant, no acute distress. HEAD: Normocephalic and atraumatic. NECK AND THYROID: Nvhb-gk-uppubwcu tenderness with palpation of posterior cervical region. SKIN: Warm and dry. MUSCULOSKELETAL: Cervical paraspinal muscle bulk is normal, cervical range of motion is restricted, normal range of motion of the upper extremities bilaterally. EXTREMITIES: No clubbing, cyanosis or edema. NEUROLOGIC: Alert and oriented x 3. Normal recent and remote memory, strength 5/5 in bilateral upper and lower extremities except for hand grasp and use of the intrinsic muscles of her hands is a 4/5. Sensory is intact to light touch in the upper and lower extremities except for diffuse decrease involving her distal forearms and both of her hands and especially prominent over the thumb and index fingers bilaterally. Reflexes are present and symmetric in the upper and 3+ in lower extremities bilaterally. There was no clonus. There were no pathologic reflexes, and she had difficulty with tandem gait. IMAGING: I reviewed an MRI scan of the cervical spine from 04/30/2018. On that study, there is diffuse cervical spondylosis. There is mild stenosis at C3-C4. At C4-C5, there is moderately severe spinal canal narrowing at 6 mm. There is flattening of the ventral aspect of the spinal cord. There is severe right and left foraminal stenosis. There are changes within the spinal cord on some views, which suggest myelomalacia. At C5-C6, there is a right paracentral disc protrusion with canal narrowing at 7 mm. There is severe right, moderately severe left neural foraminal stenosis. There is moderate central canal stenosis. ASSESSMENT/ PLAN: The patient has cervical spinal stenosis, which is moderately severe at C4-C5 and moderate at C5-C6 with deformation of the spinal cord and signs and symptoms of cervical myelopathy. My recommendation is that she undergo a 2-level anterior cervical microdiscectomy and fusion. I did discuss with her the surgery and the risks involved. We spoke about the technique of the operation. I spoke about the use of interbody fusion cages as well as anterior plating. I spoke about long-term problems associated with neck fusion. I outlined the risks of injury to the soft tissue structures of the neck and sequelae of injury to each. This included stroke, infection, injury to the trachea and esophagus as well as injury to spinal cord and nerve root. She understands. She would like to go ahead. We will make the arrangements. TRISHA BATES MD DR: ALBERTO/fredi JOB#: [id number] / [id number] BURT
[2018-06-06] VITALS (9 sets, daily range): BP systolic 89–124; BP diastolic 45–71
[~2018-06-06] VITALS: Ht 168.9 cm; Wt 120.7 kg
[~2018-06-06 07:09] MED LIST changes: +BACITRACIN 50,000 UNIT in IV NORMAL SALINE 1000ML BAG 1,000 ML IRR ONE; +BUPIVAC MPF-EPI 0.5%-1:200000 30 ML VIAL. ONE; -DOCU-109 PO; +GELATIN SPONGE SIZE 100. ONE; +IV RINGERS,LACTATED 1000ML 1,000 ML IV SCH; -METH750T2 PO; +THROMBIN TOPICAL 20,000 UNIT SPRAY.SYRN KIT TP ONE; +ceFAZolin 2GM PREMIX 2 GM/50 ML BAG IV ONE; +fentaNYL PF VIAL 100 MCG/2 ML VIAL IV PRN
[2018-06-06] MEDS ORDERED: SCOPOLAMINE 1.5MG PATCH. TD ONE (07:30)
[2018-06-06] MEDS ORDERED: PROPOFOL 20 ML IV ONE (08:17)
[2018-06-06] MEDS ORDERED: SEVOFLURANE > 120 MINUTES. IH ONE (08:17)
[2018-06-06] MEDS ORDERED: PROPOFOL 50 ML IV ONE ×2 (08:17→09:38)
[2018-06-06] MEDS ORDERED: ONDANSETRON PF 4 MG/2 ML VIAL. ONE (08:17)
[2018-06-06] MEDS ORDERED: LIDOCAINE 2% PF 5 ML VIAL. ONE (08:17)
[2018-06-06] MEDS ORDERED: ROCURONIUM 50 MG/5 ML VIAL. ONE (08:17)
[2018-06-06] MEDS ORDERED: REMIFENTANIL 2 MG VIAL. IV ONE (08:17)
[2018-06-06] MEDS ORDERED: DEXAMETHASONE SOD PHOS 20 MG/5 ML VIAL. ONE (08:17)
[2018-06-06] MEDS ORDERED: PHENYLEPHRINE in 0.9% NACL PF 1 MG/10 ML SYRINGE. IV ONE (08:18)
[2018-06-06] MEDS ORDERED: PHENYLEPHRINE 10 MG/ML VIAL. ONE (08:18)
[2018-06-06] MEDS ORDERED: GLYCOPYRROLATE 1 MG/5 ML VIAL. ONE (09:19)
[2018-06-06] MEDS ORDERED: REMIFENTANIL 1 MG VIAL. IV ONE (10:52)
[2018-06-06] MEDS: POTASSIUM CL 20MEQ D5-0.45NACL 1,000 ML IV SCH (11:25)
[2018-06-06] MEDS ORDERED: MAGNESIUM HYDROXIDE 2,400 MG/30 ML ORAL.SUSP. PO PRN (11:30)
[2018-06-06] MEDS ORDERED: ZOLPIDEM 5 MG TABLET. PO PRN (11:30)
[2018-06-06] MEDS ORDERED: CALCIUM CARBONATE 500 MG TAB.CHEW PO PRN (11:30)
[2018-06-06] MEDS ORDERED: MAG HYDROX/ALUMINUM HYD/SIMETH 30 ML ORAL.SUSP PO PRN (11:30)
[2018-06-06] MEDS ORDERED: NALOXONE 0.4 MG/ML VIAL. IV PRN (11:30)
[2018-06-06] MEDS ORDERED: ONDANSETRON PF 4 MG/2 ML VIAL. IV PRN (11:30)
[2018-06-06] MEDS ORDERED: diphenhydrAMINE HCL 25 MG CAPSULE PO PRN (11:30)
[2018-06-06] MEDS ORDERED: HYDROcodone/APAP 5/325MG 1 TAB TABLET PO PRN (11:30)
[2018-06-06] MEDS ORDERED: ACETAMINOPHEN 325 MG TABLET. PO PRN (11:30)
[2018-06-06] MEDS ORDERED: 0.9 % SODIUM CHLORIDE 10 ML DISP.SYRIN. IV PRN (11:30)
[2018-06-06] MEDS: fentaNYL PF VIAL 100 MCG/2 ML VIAL IV PRN ×5 (11:57→21:34)
[2018-06-06] MEDS ORDERED: fentaNYL PF VIAL 100 MCG/2 ML VIAL ONE (11:59)
[2018-06-06] MEDS: CITALOPRAM 20 MG TABLET. PO SCH (12:00)
[2018-06-06] MEDS ORDERED: MORPHINE SULFATE 2 MG/ML VIAL. ONE (12:08)
[2018-06-06] MEDS: MORPHINE SULFATE 2 MG/ML VIAL. IV PRN ×2 (12:09→12:32)
--- NOTE | 2018-06-06 12:34 | OP ---
DATE OF SURGERY: 06/06/2018 PREOPERATIVE DIAGNOSES: Cervical spinal stenosis and cervical radiculopathy, C4-C5 and C5-C6. POSTOPERATIVE DIAGNOSES: Cervical spinal stenosis and cervical radiculopathy, C4-C5 and C5-C6. OPERATION PERFORMED: Anterior cervical microdiscectomy at C4-C5 and C5-C6, anterior cervical interbody fusion C4-C5 and C5-C6 with allograft and autograft bone, interbody fusion cages and anterior cervical plate. The operation was done with EMG monitoring, SSEP monitoring, NIMS monitoring, fluoroscopy and microscopic dissection. SURGEON: Abhishek Bates M.D. CHEMICAL EQUIPMENT CONTROLLER: NAVID King, assisted with the surgery. She assisted with the exposure, the microdecompression, discectomy, interbody fusion, plate and closure. OPERATIVE INDICATIONS: The patient is a very pleasant 43-year-old who developed intractable neck and bilateral shoulder and arm pain, the symptoms and signs referable to cervical spinal stenosis and lateral recess stenosis and radiculopathy. On imaging studies, she had 2 levels of most significant disease at C4-C5 and C5-C6 with moderate to moderately severe cervical stenosis and severe neural foraminal narrowing and I recommended a 2-level anterior cervical microdiscectomy and fusion. I spoke with her about the surgery and the risks, technique and expected postoperative course, and she wished me to go ahead. DESCRIPTION OF PROCEDURE: Following general endotracheal anesthesia, the patient was positioned supine on the operating room table. The anterior cervical region was then prepped and draped in standard fashion. CANDIDO hose and AV impulse boots were applied for DVT prophylaxis. A microscope was draped. Fluoroscopy was draped and brought into the field. Monitoring was established. Ancef 2 grams was given less than 1 hour prior to initiation of the surgery. Using fluoroscopic guidance, an incision was made from the midline around to the right side in a skin crease. I dissected down to skin and subcutaneous tissue and dissected around the medial aspect of the sternocleidomastoid and carotid artery sheath that was where I sharply divided a portion of the platysma without any difficulty. Then, I passed medial to the carotid artery and placed the retractors exposing the anterior spine at C4-C5 and C5-C6. I placed a retractor at C5-6 wedged in the longus colli muscles. I brought in the microscope and the remainder of surgery done with the microscope using microscopic technique. I placed 14 mm pins in C5 and C6. I distracted the disc space and incised the anterior annulus. I performed discectomy with pituitary rongeurs. I drilled with the anterior spurring and I saved this bone to mix with the allograft bone for the fusion. I performed a generous discectomy and scraped away cartilaginous endplate. I drilled the posterior spur and then using 1 and 2 mm micro Kerrison's to open the annulus and the ligament. I next worked laterally bilaterally, assured that neural foramina were open. As I worked, the region became well decompressed. I then placed interbody fusion cage of 7 mm packed with allograft and autograft bone and then removed the pin from C6, closed this with bone wax and moved the retractor to C4-C5. I then distracted at this level. I drilled the anterior spurring and performed a generous discectomy, removed the posterior spurring and removed the annulus and ligament posteriorly to expose the dura and assured myself that the neural foramina were open. I irrigated copiously with antibiotic solution. I placed a 7 mm interbody fusion cage at this level. Both were lordotic cages and I did pack them with allograft and autograft bone and these were placed at both levels not until I had absolutely perfect hemostasis. I then placed a 32 mm anterior cervical plate and placed six 14 mm screws in C4, 5, and 6. Superior and inferior screws were placed first, followed by the remaining screws and then the construct was locked at each level. I then irrigated copiously after removing the retractors. I did Valsalva the patient, I assured myself of perfect hemostasis. The trachea and esophagus had gently moved back into normal position. The region looked perfect. I did close the platysma as a separate layer followed by the subcutaneous tissue. The skin was closed with 4-0 subcuticular stitch. The operation went very well. I was quite pleased with the surgery. The monitoring remained stable throughout. ABHISHEK BATES MD DR: ALBERTO/fredi JOB#: [id number] / [id number] BURT
[2018-06-06] MEDS ORDERED: HYDROmorphone 2 MG/ML VIAL ONE (12:37)
[2018-06-06] MEDS: HYDROmorphone 2 MG/ML VIAL IV PRN ×4 (12:42→13:26)
[2018-06-06] MEDS: HYDROcodone/APAP 5/325MG 1 TAB TABLET PO PRN ×2 (13:41→19:00)
[2018-06-06] MEDS ORDERED: METHOCARBAMOL 500 MG TABLET PO SCH (14:00)
[2018-06-06] MEDS ORDERED: HYDROmorphone 2 MG/ML VIAL IV ONE (15:00)
--- NOTE | 2018-06-06 15:20 | NUR ---
Patient arrived from PACU in a bed around 1520. Soft collar in place and her dressing is dry/intact. Patient needing to use restroom and voided appropriately. She states the chronic numbness/tingling in her arms has already improved since surgery. Pain medication given upon request with her pain at admission from a 7-9 in her neck. MANOLO's on both feet. Thigh high TEDS on. She is on RA with bilateral pedal and radial pulses +2. Family at bedside. Will continue to monitor.
[2018-06-06] MEDS ORDERED: ALBUTEROL SULFATE 2.5 MG/3 ML NEBU. NEB PRN (16:30)
[2018-06-06] MEDS: METHOCARBAMOL 750 MG TABLET PO SCH ×2 (16:37→21:25)
[2018-06-06] MEDS: GABAPENTIN 300 MG CAPSULE. PO SCH ×2 (16:37→21:25)
[2018-06-06] MEDS ORDERED: cefTRIAXone IV Push 1 GM VIAL. IVP SCH (17:00)
[2018-06-06] MEDS: ceFAZolin SODIUM 1 GM in IV DEXTROSE 5% 50 ML IV SCH (17:17)
[2018-06-06] MEDS ORDERED: ACYCLOVIR 200 MG CAPSULE. PO SCH (21:00)
[2018-06-06] MEDS: DOCUSATE SODIUM 100 MG CAPSULE. PO SCH (21:25)
[2018-06-07] MEDS: HYDROcodone/APAP 5/325MG 1 TAB TABLET PO PRN ×3 (00:14→09:45)
[2018-06-07] MEDS: POTASSIUM CL 20MEQ D5-0.45NACL 1,000 ML IV SCH (00:45)
[2018-06-07] MEDS: ceFAZolin SODIUM 1 GM in IV DEXTROSE 5% 50 ML IV SCH (01:07)
[2018-06-07 03:00] VITALS: BP 102/61
[2018-06-07 07:00] VITALS: BP 102/60
--- NOTE | 2018-06-07 08:29 | DISCH ---
DISCHARGE INSTRUCTIONS Condition on Discharge Condition on Discharge: Stable Activity After Discharge Activity Instructions for Disc: Activity as tolerated, Avoid exertion Other activity instructions: no driving for a week, soft collar for comfort Bathing Instructions: Shower-keep dressing dry Lifting Instructions after Dis: No heavy lifting, No pulling or pushing, Do not lift >10 pounds Diet after Discharge Diet after Discharge: Regular Wound Incision Care Wound/Incision Care: Ice to area for comfort Other wound/incision instructi: may remove dressing tomorrow if dry then may shower, no soaking Contacting the after DC Call your doctor for: Concerns you may have Follow-Up Follow up with: Dr. Bates's nurse in 2 weeks [phone] TRISHA BATES MD Jun 07, 2018 08:29
[2018-06-07] MEDS ORDERED: HYDR-2761 PO (08:32)
[2018-06-07] MEDS ORDERED: DOCU-109 PO (08:32)
[2018-06-07] MEDS ORDERED: METH750T2 PO (08:32)
[2018-06-07] MEDS: CITALOPRAM 20 MG TABLET. PO SCH (09:00)
[2018-06-07] MEDS: METHOCARBAMOL 750 MG TABLET PO SCH (09:44)
[2018-06-07] MEDS: DOCUSATE SODIUM 100 MG CAPSULE. PO SCH (09:44)
[2018-06-07] MEDS: GABAPENTIN 300 MG CAPSULE. PO SCH (09:45)
--- NOTE | 2018-06-07 10:09 | NUR ---
Discharge instructions and belongings reviewed with patient, verbalized understanding. Patient was escorted out of hospital via wheelchair by [facility] B[facility] GRADER accompanied by her daughter.
--- NOTE | 2018-06-09 12:12 | DS ---
DATE OF DISCHARGE: 06/07/2018 DISCHARGE DIAGNOSES: Cervical spinal stenosis and cervical radiculopathy, C4-C5 and C5-C6. OPERATION PERFORMED: Anterior cervical microdiskectomy and fusion, C4-C5 and C5-C6. HISTORY OF PRESENT ILLNESS: The patient is a pleasant 43-year-old who developed intractable neck and bilateral shoulder and arm pain. On imaging studies, she had two levels of disease at C4-C5 and C5-C6 with moderately severe cervical stenosis and severe neuroforaminal narrowing and I recommended a 2-level anterior cervical microdiskectomy and fusion. She understood the surgery, the risks and the expected postoperative course. She wished to go ahead. HOSPITAL COURSE: She was admitted to the floor postoperatively where she did well. She was up ambulating in the room and in the halls. Physical therapy was initiated and instruction was given to her regarding her activities. Her pain is well controlled and she is in good condition to discharge home. DISCHARGE MEDICATIONS: She will resume her medications per the MRAD. DISCHARGE INSTRUCTIONS: She was instructed regarding incision care, activity restrictions and expectations for the next several weeks. She will follow up in our office in 2 weeks. She understands to call with any questions or concerns. TRISHA BATES MD DR: MERCY/fredi JOB#: [id number] / [id number]
--- NOTE | 2018-06-09 15:06 | PATHOLOGY ---
[facility] Accession Number: [id number] . 01 Material submitted: . vertebral column - CERVICAL DISC . 01 Clinical history: . Cervical stenosis, spondylosis with myelopathy, cervicalgia . 02 Diagnosis: "Cervical disc", removal: - Fragments of fibrocartilage with focal degenerative changes. - Scant fragments of unremarkable bone. . (SKM:mml; 06/09/2018) QLM/06/09/2018 . 02 Electronically signed: . Сергей Fabian MD, Pathologist NPI- [id number] . 01 Gross description: . The specimen is received in formalin, labeled "Bk, Katarina, cervical disc" and consists of fragments of fibrous pink-wolfe tissue and bone measuring 2.5 x 2.4 x 0.5 cm in aggregate which are entirely submitted in A1 following decalcification. (SDY; 06/06/2018) SYU/SYU . 02 Pathologist provided ICD-10: M50.30 . 02 CPT . 490932, 101063 Specimen Comment: A courtesy copy of this report has been sent to Specimen Comment: [phone], . Specimen Comment: Report sent to / DR NICKERSON Performed at: 01 [facility] [address], [place] [id number] MD Mike Garcia MD Phone: [phone] Performed at: 02 [facility] [address], [place] [id number] MD Shamar Serrano MD Phone: [phone]
== END 2018-06-07 10:21 | disposition home or self-care (01) ==
LOC: SURG 07:09 → 4 NORTH 11:47
PROVIDERS: ADMIT Neurological Surgery; ATTEND Neurological Surgery
DX: M48.02 Spinal stenosis, cervical region (principal); G43.909 Migraine, unspecified, not intractable, without status migrainosus; M47.12 Other spondylosis with myelopathy, cervical region; M54.12 Radiculopathy, cervical region; Z90.710 Acquired absence of both cervix and uterus; Z82.0 Family history of epilepsy and other diseases of the nervous system; Z82.49 Family history of ischemic heart disease and other diseases of the circulatory system; Z83.3 Family history of diabetes mellitus
CPT/HCPCS: 20931; 20938; 22551; 22552; 22853; 76000; 88304; 88311; 96365; 96366; 96375; 96376; 97116; 97162; 97530; A7015; C1713; G0378; G0379; J0690; J0696; J1100; J1170; J2001; J2270; J2370; J2405; J2704; J3010; J3490; J7030

== ENCOUNTER → 2018-08-27 | Outpatient (CLI) | payer BC ==
[~2018-08-27] MED LIST changes: -BACITRACIN 50,000 UNIT in IV NORMAL SALINE 1000ML BAG 1,000 ML IRR ONE; -BUPIVAC MPF-EPI 0.5%-1:200000 30 ML VIAL. ONE; +DOCU-109 PO; -GELATIN SPONGE SIZE 100. ONE; -IV RINGERS,LACTATED 1000ML 1,000 ML IV SCH; +METH750T2 PO; -THROMBIN TOPICAL 20,000 UNIT SPRAY.SYRN KIT TP ONE; -ceFAZolin 2GM PREMIX 2 GM/50 ML BAG IV ONE; -fentaNYL PF VIAL 100 MCG/2 ML VIAL IV PRN
--- NOTE | 2018-08-27 17:22 | KCIC ---
CERVICAL SPINE 2-3V History: Cervical fusion Comparison: MRI cervical spine exam April 30, 2018 Findings: 2 views of cervical spine are submitted. There is now intact anterior cervical fusion hardware C4, C5, C6 also with interbody grafts at these levels. There is mild degenerative disc disease and spondylosis at C3-C4 and C6-7. Cervical vertebral body stature is maintained. AP alignment is within normal limits. There is mild reversal of the lordotic curvature centered near C3-4. Impression: 1. There is intact anterior cervical fusion hardware C4-C6. 2. There is mild degenerative disc disease and spondylosis at C3-C4 and C6-7. Electronically signed by: Darron Aguilar MD (08/27/2018 5:20 PM) [id number]
== END | disposition home or self-care (01) ==
LOC: KCIC 09:25
PROVIDERS: ATTEND Neurological Surgery
DX: M50.31 Other cervical disc degeneration, high cervical region (principal); M47.812 Spondylosis without myelopathy or radiculopathy, cervical region; Z98.1 Arthrodesis status
CPT/HCPCS: 72040

== ENCOUNTER → 2018-11-13 | Outpatient (CLI) | payer BC ==
[2018-10-03 23:13] VITALS: BP 149/87
[~2018-11-13] MED LIST changes: +HYDR-3164 PO; +ORPH100T PO
--- NOTE | 2018-11-13 11:42 | KCIC ---
MRI Cervical Spine Without Contrast History: Cervical stenosis, previous surgery, upper extremity numbness bilaterally, imbalance, fall Technique: Multiplanar, multi sequential noncontrast MR imaging was performed of the cervical spine. Comparison: April 30, 2018 Findings: There is mild motion. There has been anterior cervical fusion C4, C5, C6, interbody grafts at these levels. Exam does not accurately evaluate integrity of hardware. Cervical cord caliber is within normal limits, no defined or expansile signal abnormality. There is again questionable subtle increased T2 signal of the cord near C4-5. There is straightening of the cervical spine. Cervical vertebral body stature is maintained. AP alignment is within normal limits. There is no new convincing marrow edema, some artifact from hardware. Small focus of signal change of the T2 vertebral body is probably a hemangioma. C2-C3: Neural foramina and spinal canal are adequate. There is mild left uncovertebral degenerative change. C3-C4: There is again minimal disc osteophyte complex. Central canal is minimally narrowed about 9 to 10 mm as seen previously. There is minimal uncovertebral degenerative change. There is again gqzc-nq-vbxisjen narrowing of the left neural foramen, right neural foramen adequate. C4-C5: There are minimal posterior osteophytes, previously seen protrusion no longer seen. Central canal is narrowed to about 7 mm also with degree of mild lateral recess stenosis right greater than left. There are uncovertebral osteophytes, also degree of facet degenerative change bilaterally contributing to fairly severe neural foramina compromise bilaterally. C5-C6: There are residual posterior osteophytes. Central canal is narrowed to about 7 to 8 mm, overall somewhat decreased in interval. There is overall mild lateral recess stenosis greater on the right. There are uncovertebral osteophytes greater on the right. There is moderate to severe neural foramina compromise bilaterally. There are again small likely nerve root sleeve cysts of the proximal extraforaminal regions greater on the right. C6-C7: There is again disc osteophyte complex and shallow bulge, central canal minimally narrowed about 9 to 10 mm. There is uncovertebral degenerative change. Right neural foramen is adequate, overall mild narrowing of the left neural foramen. C7-T1: Spinal canal and neural foramina are adequate. Impression: 1. Compared with the previous April 2018 exam, there is now anterior cervical fusion hardware C4, C5, C6. There is a lesser degree of spinal stenosis at C4-5 and C5-6, residual degree of stenosis by osteophytes on the order of 7 mm at C4-5 and to a somewhat lesser degree at C5-6. There is also mild spinal stenosis as described C3-4 and C6-7. 2. Facet and uncovertebral degenerative change contributes to multilevel neural foramina compromise, more significant narrowing bilaterally at C4-C5 and C5-6. 3. There is questionable amorphous very mild T2 hyperintense signal of the cord at C4-5, possible very mild myelomalacia, difficult to accurately characterize given mild motion. No new defined or expansile cord abnormality is identified. Electronically signed by: Darron Aguilar MD (11/13/2018 11:39 AM) [facility]
== END | disposition home or self-care (01) ==
LOC: KCIC MRI 10:05
PROVIDERS: ATTEND Neurological Surgery
DX: M48.02 Spinal stenosis, cervical region (principal); M25.78 Osteophyte, vertebrae; M54.12 Radiculopathy, cervical region; Z90.710 Acquired absence of both cervix and uterus
CPT/HCPCS: 72141

== ENCOUNTER → 2020-09-08 | Outpatient (CLI) | payer BC, OTHER ==
[2018-10-03 23:13] VITALS: BP 149/87
[~2020-09-08] MED LIST changes: +ACYC-12 PO; -ACYC400T PO; -LAMO100T PO; +LAMO100T8 PO; +METH-562 PO; -METH750T2 PO
--- NOTE | 2020-09-19 09:08 | EEG ---
DATE OF SERVICE: 09/08/2020 EEG NUMBER: . OBJECTIVE: The patient is a 45-year-old female with seizures. DESCRIPTION: This is a digital study. Electrodes were placed according to the international 10-20 system. Bipolar and referential montages are available. Activation procedures typically include hyperventilation and intermittent photic stimulation. INTERPRETATION: The waking background consists of 9 -- 10 Hz, 50-100 microvolt activity, symmetrically distributed over parietooccipital regions and reactive to eye opening. Hyperventilation and intermittent photic stimulation are noncontributory. Stage 1 sleep was achieved with normal electroencephalogram patterns. All computer-identified abnormalities are reviewed and none are truly abnormal, just artifactual. IMPRESSION: This electroencephalogram with the patient awake and asleep is within normal limits. There is no focal, paroxysmal, or epileptiform activity. Thank you for letting us help with the patient's care. ANI DR: Marvin TID: [id number]
== END ==
LOC: RT 10:40
PROVIDERS: ATTEND Psychiatry & Neurology Neurology with Special Qualifications in Child Neurology
DX: R56.9 Unspecified convulsions (principal)
CPT/HCPCS: 95816

== ENCOUNTER → 2020-09-09 | Outpatient (CLI) | payer OTHER ==
[2018-10-03 23:13] VITALS: BP 149/87
--- NOTE | 2020-09-09 17:54 | RAD ---
MRI of the brain without contrast 09/09/2020 Clinical History: Syncope. Technique: Unenhanced T1-weighted sagittal and axial, T2-weighted axial and coronal and FLAIR, gradie nt echo and diffusion-weighted axial images of the brain were obtained. Findings: Comparison is made to a CT scan of the head dated 04/02/2017. The ventricles and sulci are within normal limits in size and configuration. Patchy and a few small s cattered areas of increased signal intensity are seen within the periventricular and subcortical whit e matter of both cerebral hemispheres on the FLAIR and T2-weighted images consistent most likely with areas of minimal small vessel ischemic disease. No acute parenchymal abnormality is seen. No extra-a xial fluid collection is noted. There is no MRI evidence of acute ischemia/infarction. Mild mucosal thickening is seen scattered throughout the paranasal sinuses. Normal flow voids are see n within the major vascular structures surrounding the brain parenchyma. IMPRESSION: No acute parenchymal abnormality is seen. Electronically signed by: Jose Miguel Farr MD (09/09/2020 5:52 PM) [id number]
== END ==
LOC: MRI 13:56
PROVIDERS: ATTEND Family Medicine
DX: R55 Syncope and collapse (principal)
CPT/HCPCS: 70551